=== PATIENT | female | born 1995 | race Caucasian/White ===

== ENCOUNTER 2019-03-04 13:13 | Emergency (ER) | payer MEDICAID ==
[~2019-03-04] VITALS: Ht 170.2 cm; Wt 90.5 kg
[2019-03-04 13:25] VITALS: BP 120/77; Ht 170.2 cm; Wt 90.5 kg
[2019-03-04] MEDS ORDERED: CELEXA10 MG PO (13:29)
[2019-03-04] MEDS ORDERED: KEFLEX500 MG PO (14:17)
[2019-03-04] MEDS ORDERED: SULFAMETHOXAZOL1 TA3 PO (14:17)
[2019-03-04] MEDS ORDERED: ACETAMINOPHEN500 M1 PO (14:17)
[2019-03-04] MEDS ORDERED: IBUPROFEN800 MG PO (14:17)
[2019-03-04] MEDS ORDERED: CYCLOBENZAPRINE10 MG PO (14:17)
[2019-03-04 15:12] LABS: BASOPHILS 0.2 % (0-2); EOSINOPHILS 1.6 % (0-7); HEMATOCRIT 39.4 % (36.0-48.0); HEMOGLOBIN 13.2 g/dL (12-16); IMMATURE GRANULOCYTES 0.2 % (0-5); LYMPHOCYTES 18.2 % (15-50); MCH 28.4 pg (26.0-34.0); MCHC 33.5 g/dL (31.0-37.0); MCV 84.7 fL (80.0-100.0); MEAN PLATELET VOLUME 9.2 fL (7.4-10.4); MONOCYTES 5.3 % (2-11); NEUTROPHILS 74.5 % (40-80); PLATELET COUNT 266 10x3/uL (130-400); RBC 4.65 10x6/uL (4.00-5.40); RDW 14.5 % (11.5-14.5); WBC 8.1 10x3/uL (4.8-10.8)
[2019-03-04 15:23] LABS: APTT 28.3 SECONDS (22.8-39.4); INR 1.07 (0.85-1.17); PROTIME 13.4 SECONDS (11.6-15.0)
[2019-03-04 15:27] LABS: ALBUMIN 3.8 g/dL (3.4-5.0); ALKALINE PHOSPHATASE 87 U/L (46-116); ALT (SGPT) 32 U/L (10-68); CALC OSMOLALITY 281 mosm/kg (275-300); CARBON DIOXIDE 23.7 mmol/L (21.0-32.0); CHLORIDE - SERUM 104 mmol/L (98-107); CREATININE - SERUM 0.9 mg/dL (0.6-1.3); GLUCOSE 142 mg/dL (74-106); POTASSIUM - SERUM 3.3 mmol/L (3.5-5.1); PROTEIN - SERUM 7.8 g/dL (6.4-8.2); SODIUM 140 mmol/L (136-145); UREA NITROGEN 14 mg/dL (7-18); eGFR NON AFRICAN AMERICAN 81 mL/min (90-120)
== END 2019-03-04 16:05 | disposition home or self-care (01) ==
LOC: D.ER 13:13
PROVIDERS: Family Medicine
DX: T63.091A Toxic effect of venom of other snake, accidental (unintentional), initial encounter (principal); Y92.89 Other specified places as the place of occurrence of the external cause

== ENCOUNTER 2019-03-28 05:40 | Outpatient (CLI) | payer MEDICAID ==
[2019-03-26 14:54] LABS: BASOPHILS 0.3 % (0-2); EOSINOPHILS 2.1 % (0-7); HEMATOCRIT 39.7 % (36.0-48.0); HEMOGLOBIN 12.9 g/dL (12-16); IMMATURE GRANULOCYTES 0.3 % (0-5); MCH 28.4 pg (26.0-34.0); MCHC 32.5 g/dL (31.0-37.0); MCV 87.3 fL (80.0-100.0); MONOCYTES 7.8 % (2-11); NEUTROPHILS 66.5 % (40-80); PLATELET COUNT 272 10x3/uL (130-400); RBC 4.55 10x6/uL (4.00-5.40); RDW 14.4 % (11.5-14.5); WBC 6.3 10x3/uL (4.8-10.8)
[~2019-03-28] VITALS: Ht 170.2 cm; Wt 90.3 kg
[~2019-03-28 05:40] MED LIST: ACETAMINOPHEN500 M1 PO; CELEXA10 MG PO; CYCLOBENZAPRINE10 MG PO; IBUPROFEN800 MG PO; KEFLEX500 MG PO; SULFAMETHOXAZOL1 TA3 PO
[2019-03-28 06:40] VITALS: BP 115/70; Ht 170.2 cm; Wt 90.3 kg
[2019-03-28 07:04] LABS: HCG URINE NEGATIVE (NEGATIVE)
--- NOTE | 2019-03-28 07:16 | NUR ---
DR DODD ON UNIT. RELATES SCHEDULE HAS TO BE CANCELLED DUE TO EQUIPMENT FAILURE. IV DC'D WITH CATHETER INTACT.
== END 2019-03-28 05:41 | disposition home or self-care (01) ==
LOC: D.OPS 05:40 → D.PAN 07:30 → EDSTATUS 07:30 → D.OPS 07:30
PROVIDERS: ATTEND Obstetrics & Gynecology
DX: Z30.2 Encounter for sterilization (principal); Z53.8 Procedure and treatment not carried out for other reasons; Z01.812 Encounter for preprocedural laboratory examination

== ENCOUNTER 2019-04-11 07:13 | Day surgery (SDC) | payer MEDICAID ==
[2019-04-09 08:35] LABS: BASOPHILS 0.1 % (0-2); EOSINOPHILS 2.2 % (0-7); HEMATOCRIT 39.5 % (36.0-48.0); HEMOGLOBIN 13.1 g/dL (12-16); IMMATURE GRANULOCYTES 0.3 % (0-5); LYMPHOCYTES 25.6 % (15-50); MCH 28.6 pg (26.0-34.0); MCHC 33.2 g/dL (31.0-37.0); MCV 86.2 fL (80.0-100.0); MEAN PLATELET VOLUME 9.2 fL (7.4-10.4); MONOCYTES 5.2 % (2-11); NEUTROPHILS 66.6 % (40-80); PLATELET COUNT 237 10x3/uL (130-400); RBC 4.58 10x6/uL (4.00-5.40); RDW 14.2 % (11.5-14.5); WBC 6.9 10x3/uL (4.8-10.8)
[~2019-04-11] VITALS: Ht 170.2 cm; Wt 90.3 kg
--- NOTE | ~2019-04-11 | OP ---
PATIENT NAME: JOSIAH TYLER MEDICAL RECORD: [id number] :89 LOCATION:[facility] ADMISSION DATE: SURGEON: HAYDEN HURLEY MD DATE OF OPERATION: 04/11/2019 PREOPERATIVE DIAGNOSES: 1. Multiparity. 2. The patient desires permanent sterility. POSTOPERATIVE DIAGNOSES: 1. Multiparity. 2. The patient desires permanent sterility. PROCEDURE: Laparoscopic tubal ligation via bipolar cautery. SURGEON: Hayden Hurley MD ANESTHESIA: General via LMA. INTRAVENOUS FLUIDS: Per anesthesia records. ESTIMATED BLOOD LOSS: Minimal. SPECIMENS: None. FINDINGS: 1. Grossly normal-appearing uterus. 2. Grossly normal-appearing fallopian tubes and ovaries. COMPLICATIONS: None apparent. PROCEDURE IN DETAIL: The patient was taken to the operating room, where general anesthesia was achieved without any difficulty. The patient was then prepped and draped in normal sterile fashion in the dorsal lithotomy position in the [facility]. SCDs were on and functioning appropriately. Following prep and drape, the patient was straight cathed and approximately 100 cc of clear urine was returned. A sponge stick was placed in the vagina for uterine elevation. At this point, attention was turned to the umbilicus, where a 5-mm infraumbilical skin incision was made and the 5-mm bladeless trocar was used to enter the intraperitoneal space under direct visualization of the laparoscope. The introducer was removed and the camera was replaced and intraperitoneal placement was confirmed visually. The patient was then insufflated and opening pressure was found to have less than 10 mmHg. At this point, the patient was insufflated and a second port site was placed in the midline, approximately 4 cm above the pubic symphysis. A 5-mm skin incision was made and a second 5-mm bladeless trocar was used to enter the intraperitoneal space under direct visualization of the laparoscope. At this point, the tubes were identified in their entirety. The Kleppinger bipolar forceps was then used to completely desiccate a 5-cm section of the mid portion of the fallopian tube. Good hemostasis was noted bilaterally. The instruments were removed and the suture sites were observed under decreased pneumoperitoneum pressure and good hemostasis was again noted. The patient was then fully desufflated and the trocars were removed. The skin incisions were repaired with 3-0 Vicryl in interrupted fashion. Sponge stick was removed from vagina. The patient tolerated the procedure well and was transferred to postanesthesia recovery OPERATIVE REPORT [id number] JOSIAH TYLRE without incident. 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
[2019-04-11 08:26] LABS: HCG URINE NEGATIVE (NEGATIVE)
[2019-04-11 08:47] VITALS: BP 133/77; Ht 170.2 cm; Wt 90.3 kg
--- NOTE | 2019-04-11 14:45 | NUR ---
REC'D FROM [facility]. TWO SURGICAL INCISIONS CDI. FAMILY AT BEDSIDE.
--- NOTE | 2019-04-11 16:39 | NUR ---
1600 PT AMBULATED TO BR WITH MINIMAL ASSISTANCE. VOIDED WITHOUT DIFFICULTY. BANDAIDS FALLING OFF THAT HAD COTTON BALLS UNDER BANDAID. NEW BANDAIDS APPLIED. INCISIONS DRY AND INTACT. 1605 IV DC'D. CATHETER INTACT. NO BLEEDING AT SITE. BANDAID APPLIED.
== END 2019-04-11 16:18 | disposition home or self-care (01) ==
LOC: D.OPS 07:13 → D.PAN 09:00 → D.OPS 09:00
PROVIDERS: ATTEND Obstetrics & Gynecology
DX: Z30.2 Encounter for sterilization (principal); Z01.812 Encounter for preprocedural laboratory examination

== ENCOUNTER 2019-12-19 19:46 | Emergency (ER) | payer MEDICAID ==
[~2019-12-19] VITALS: Ht 170.2 cm; Wt 90.9 kg
[2019-12-19 19:50] VITALS: Ht 170.2 cm; Wt 90.9 kg
[2019-12-19] MEDS ORDERED: CYCLOBENZAPRINE10 MG PO (20:08)
[2019-12-19 21:07] VITALS: BP 143/88
== END 2019-12-19 21:07 | disposition home or self-care (01) ==
LOC: D.ER 19:46
DX: S39.012A Strain of muscle, fascia and tendon of lower back, initial encounter (principal); V89.2XXA Person injured in unspecified motor-vehicle accident, traffic, initial encounter; Y93.9 Activity, unspecified; Y92.9 Unspecified place or not applicable